=== PATIENT | female | born 1995 | race Caucasian/White ===

== ENCOUNTER 2020-02-20 17:57 | Emergency (ER) | payer OTHER ==
[~2020-02-20] VITALS: Ht 165.1 cm; Wt 132.9 kg
[2020-02-20 18:02] VITALS: BP 148/86
--- NOTE | 2020-02-20 18:08 | NUR ---
AMB TO BED 04 STEADY GAIT
--- NOTE | 2020-02-20 18:11 | NUR ---
XRAY AT BEDSIDE
[2020-02-20] MEDS ORDERED: IBUPROFEN 800 MG TAB PO ONE (18:15)
[2020-02-20] MEDS ORDERED: HYDROcodone/APAP 7.5/325 MG 1 TAB PO ONE (18:15)
[2020-02-20] MEDS ORDERED: ONDANSETRON 4 MG ODT PO ONE (18:15)
--- NOTE | 2020-02-20 18:15 | NUR ---
PA FELIX EVALUATING PT AT BEDSIDE
--- NOTE | 2020-02-20 18:16 | NUR ---
24/F C/O RIGHT HAND 4TH DIGIT PAIN 2/2 FINGER CAUGHT BETWEEN METAL DOOR AND HORSE TODAY. ABLE TO MOVE DIGIT BUT VERY LIMITED ROM. SLIGHT ABRASION NOTED BETWEEN RT 4TH DIGIT DIP AND PIP JOINT. NO BLEEDING. HX- DENIES NKA
--- NOTE | 2020-02-20 18:25 | NUR ---
PT PLACED IN SHORT ALUMINUM FINGER SPLINT AND WRAPPED WITH 2"GUAZE DRESSING, PT CMS WNL BEFORE AND AFTER. PA NOTIFIED.
--- NOTE | 2020-02-20 18:26 | NUR ---
EMT AT BEDSIDE FOR APPLICATION OF SPLINT
[2020-02-20 18:54] VITALS: BP 150/94
--- NOTE | 2020-02-20 18:54 | NUR ---
Patient discharged with v/s stable. Written and verbal after care instructions given and explained. Patient alert, oriented and verbalized understanding of instructions. Ambulatory with steady gait. All questions addressed prior to discharge. ID band removed. Patient advised to follow up with PMD. Rx of Motrin and norco given. Patient educated on indication of medication including possible reaction and side effects. Opportunity to ask questions provided and answered. CD images given to patient. mother waiting in lobby to drive pt to home. Ortho information given to pt
== END 2020-02-20 18:54 | disposition home or self-care (01) ==
LOC: MED 17:57
DX: S62.614A Displaced fracture of proximal phalanx of right ring finger, initial encounter for closed fracture (principal); W23.0XXA Caught, crushed, jammed, or pinched between moving objects, initial encounter; Y93.89 Activity, other specified; Y92.89 Other specified places as the place of occurrence of the external cause; Y99.8 Other external cause status; R03.0 Elevated blood-pressure reading, without diagnosis of hypertension
CPT/HCPCS: 29130; 73130; 99284; Q0092; Q0162